=== PATIENT | female | born 1945 ===

== ENCOUNTER 2020-12-25 21:17 | Outpatient (REF) | payer SELFPAY ==
[2020-12-27 19:41] LABS: HSV 1 DNA Result Negative (Negative); HSV 2 DNA Result Negative (Negative)
== END 2020-12-25 21:18 | disposition home or self-care (01) ==
LOC: LBN 21:17
PROVIDERS: Visit Provider Nurse Practitioner Family
DX: R21 Rash and other nonspecific skin eruption (principal)
CPT/HCPCS: 87529; 87070